=== PATIENT | male | born 1935 | race Caucasian/White ===

== ENCOUNTER 2021-04-09 19:11 | Emergency (ER) | payer OTHER ==
[~2021-04-09] VITALS: Ht 167.6 cm; Wt 67.6 kg
[2021-04-09 19:25] VITALS: BP 120/80
--- NOTE | 2021-04-09 20:31 | NUR ---
Dr. Andrea examining patient.
[2021-04-09] MEDS ORDERED: methylPREDNISolone SS 125 MG in WATER STERILE 2 ML IV ONE (20:35)
[2021-04-09] MEDS ORDERED: FAMOTIDINE 20 MG/2 ML VIAL IVP ONE (20:35)
[2021-04-09] MEDS ORDERED: EPIN1KIT31 IM (20:48)
[2021-04-09] MEDS ORDERED: FAMO-90 PO (20:48)
[2021-04-09] MEDS ORDERED: PRED20TA5 PO (20:48)
[2021-04-09] MEDS ORDERED: DIPH25TA53 PO (20:48)
[2021-04-09] MEDS ORDERED: WATER STERILE 10 ML MC ONE (21:06)
[2021-04-09] MEDS ORDERED: methylPREDNISolone SS 125 MG/2 ML VIAL ONE (21:06)
[2021-04-09 21:37] VITALS: BP 139/66
--- NOTE | 2021-04-09 21:37 | NUR ---
d/c with VSS. d/c education given. opportunity to ask questions given and answered. rx of benadryl, prednisone, reglan, and epipen given. IV site removed, bleeding controlled with sterile gauze and reinforced with tape.
== END 2021-04-09 21:37 | disposition home or self-care (01) ==
LOC: MED 19:11
DX: R22.0 Localized swelling, mass and lump, head (principal); Z90.49 Acquired absence of other specified parts of digestive tract; Z79.899 Other long term (current) drug therapy
CPT/HCPCS: 96374; 96375; 99284; J2930; J3490